=== PATIENT | female | born 1950 | race Caucasian/White ===

== ENCOUNTER 2019-07-23 21:28 | Emergency (ER) | payer MEDICARE, SELFPAY ==
[2019-07-23 21:29] VITALS: BP 161/101; PULSE 89; RESP 16; TEMP 36.8; O2SAT 94; BMI 37.8
--- NOTE | 2019-07-23 22:33 | ED.DCSUM_ITS ---
- ER Visit Summary Date of Service: 07/23/19 Chief Complaint: Right lower jaw discomfort and swelling. History of Present Illness: The patient is a 69 F no past medical history. Patient states today she had some mild swelling of her lower jaw dental pain. Denies any trauma. No fever. Physical Examination: Older female no acute distress vital signs are stable afebrile. H EENT exam posterior pharynx normal. She has mild swelling of the gums of the right lower jaw and mild facial swelling. No trouble swallowing or breathing. There is no abscess that can be drained. Posterior pharynx normal. No trouble opening closing her mouth. No trismus. Neck nontender. No lymphadenopathy. Lungs clear to auscultation. Heart regular rhythm no murmur. Abdomen soft nontender. Otherwise exam unremarkable. Test Results: None Emergency Department Course and Treatment: Patient has a dental infection. But not a drainable abscess. She will be started on clindamycin first dose given in the ER. She has a dental appointment for next week. Treatment Plan: Send 4 times daily 3 9 mg. Tylenol and Motrin for pain. Follow-up with a dentist. Disposition: dc Impression: Facial swelling secondary to dental infection This note was generated with [employer] dictation software. It may contain incorrect words, spelling, and punctuation that were not noted in review of the chart prior to signing ED Disposition - Plan for ED Patient: Referrals: Care Physician,No Primary [Primary Care Provider] -
--- NOTE | 2019-07-23 22:35 | ED.DEP ---
ED Disposition - Plan for ED Patient: Disposition: Home or Assisted Living Instructions: Dental Abscess Prescriptions: Clindamycin [Cleocin] 300 mg PO 4X/DAY 10 Days #80 cap Prescription Printed Additional Instructions: Warm salt water gargling. Clindamycin 300 mg 4 times a day for 10 days. Tylenol Motrin for pain. Follow-up with a local dentist. Dr. Tacos Sanchez is a local dentist.
[2019-07-23] MEDS: Clindamycin HCl 150 MG Capsule 300 MG PO (22:45)
[2019-07-23 22:48] VITALS: BP 152/100; PULSE 91; RESP 16; O2SAT 99
== END 2019-07-23 22:49 | disposition home or self-care (01) ==
PROVIDERS: Emergency Provider Emergency Medicine
DX: K04.7 Periapical abscess without sinus (principal)
CPT/HCPCS: 99282

== ENCOUNTER 2019-07-24 11:35 | Emergency (ER) | payer MEDICARE, SELFPAY ==
[2019-07-23 21:29] VITALS: BMI 37.8
[2019-07-24 11:38] VITALS: BP 162/81; PULSE 81; RESP 17; TEMP 36.9; O2SAT 94; BMI 36.1
--- NOTE | 2019-07-24 12:07 | ED.VISSUMM ---
- ER Visit Summary Date of Service: 07/24/19 Chief Complaint: Gum and facial swelling History of Present Illness: The patient is a 69 F seen yesterday for infection of her dominant dentition in the right lower jaw. She returned on clindamycin due to allergies to other medications. And was concerned that it might be more swollen. Said actually the pain is much better. She denies any fever. Patient also stated she did mention yesterday that she might be getting a urinary tract infection. I told her we gladly do a urinalysis and she said no issues with your primary care physician. Physical Examination: Older female no acute distress vital signs are stable afebrile. H EENT exam actually the lower jaw abdomen is much less swollen than yesterday. There is no abscess and nothing to drain. There is mild swelling of her right lower jaw. Is no lymphadenopathy. Is no trouble opening closing her mouth. No trouble swallowing. No trismus. In the floor of the mouth is soft. Lungs clear. Heart regular rhythm no murmur. Otherwise exam unremarkable. Test Results: None Emergency Department Course and Treatment: Patient does not want a urinalysis. She will continue her clindamycin. She will follow-up with a local dentist. Treatment Plan: Continue your current antibiotic. Follow-up with your dentist. Warm water gargling. Tylenol Motrin for pain. Disposition: Discharge Impression: Dental infection This note was generated with [employer] dictation software. It may contain incorrect words, spelling, and punctuation that were not noted in review of the chart prior to signing ED Disposition - Plan for ED Patient: Referrals: Care Physician,No Primary [Primary Care Provider] -
--- NOTE | 2019-07-24 12:15 | ED.DEP ---
ED Disposition - Plan for ED Patient: Disposition: Home or Assisted Living Instructions: Dental Abscess Additional Instructions: Warm salt water gargling. Tylenol and Motrin for pain. Continue your antibiotic.
[2019-07-24 12:18] VITALS: BP 181/92; PULSE 71; RESP 18; O2SAT 95
== END 2019-07-24 12:18 | disposition home or self-care (01) ==
PROVIDERS: Emergency Provider Emergency Medicine
DX: K04.7 Periapical abscess without sinus (principal)
CPT/HCPCS: 99282